=== PATIENT | female | born 1960 | race Asian ===

== ENCOUNTER 2016-09-19 12:01 | Outpatient (CLI) | payer OTHER ==
[2016-09-19 13:10] LABS: POTASSIUM 4.2 mmol/L (3.6-5.2)
== END 2016-09-19 19:44 | disposition home or self-care (01) ==
LOC: LABW 12:01
PROVIDERS: Physician Assistant
DX: R25.2 Cramp and spasm (principal)
CPT/HCPCS: 36415; 80053; 83735

== ENCOUNTER 2019-01-03 08:51 | Outpatient (CLI) | payer OTHER | END 2019-01-03 23:31 | disposition home or self-care (01) | LOC: RAD 08:51 | DX: Z13.820 Encounter for screening for osteoporosis (principal); N95.8 Other specified menopausal and perimenopausal disorders ==